=== PATIENT | male | born 1940 | race Caucasian/White ===

== ENCOUNTER 2019-11-21 | Emergency (ER) | payer MEDICARE, BC ==
[~2019-11-21] MED LIST: ALBUTEROL SUL0.083 % IN; ATORVASTATIN CA10 MG PO; BAYER LOW DOSE81 MG; COMBIVENT IN; DOXYCYCL HYC100 MG PO; DULCOLAX5 MG PO; FISH OIL1000 MG PO; LISINOP/HCTZ1 TAB OR; METFORMIN500 MG OR; PRAVASTATIN20 MG PO; PREDNISONE20 MG PO; VIAGRA100 MG OR; ZESTRIL5 M1 PO; [UNRECOGNIZED DRUG - OTHER] OR
[2019-11-21] MEDS ORDERED: ADULT ASPIRIN R81 MG PO (09:53)
[2019-11-21] MEDS ORDERED: ATORVASTATIN CA20 MG PO (09:55)
[2019-11-21] MEDS ORDERED: FISH OIL1000 MG PO (09:56)
[2019-11-21] MEDS ORDERED: NEXIUM40 M1 PO (09:56)
[2019-11-21] MEDS ORDERED: FLONASE AL50 MCG/ACT NAB (09:57)
[2019-11-21] MEDS ORDERED: METFORMIN500 MG PO (09:58)
[2019-11-21] MEDS ORDERED: PRINIVIL5 MG PO (09:58)
[2019-11-21] MEDS ORDERED: NAPROXEN250 MG PO (09:59)
[2019-11-21] MEDS ORDERED: SILDENAFIL100 MG PO (10:00)
[2019-11-21] MEDS ORDERED: NORVASC2.5 M1 PO (10:01)
[2019-11-21] MEDS ORDERED: CLINDAMYCIN HC150 MG PO (10:04)
[2019-11-21 10:07] LABS: HEMATOCRIT 40.7 % (39.0-50.0); HEMOGLOBIN 13.4 g/dl (14.0-18.0); IMMATURE GRANULOCYTES 0.3 % (0.0-5.0); MEAN CELL VOLUME 95.5 fL CALC (80.0-100.0); MEAN CORPUSCULAR HGB 31.5 pG CALC (26.0-32.0); MEAN CORPUSCULAR HGB CONC 32.9 g/L CALC (32.0-36.0); NEUT# 3.53 thou/uL (1.82-7.42); RED BLOOD COUNT 4.26 mill/uL (4.70-6.10); RED CELL DISTRI WIDTH 13.5 % (11.5-15.5)
[2019-11-21 10:12] LABS: URINE BILIRUBIN - DIPSTICK NEGATIVE (NEGATIVE); URINE BLOOD DIPSTICK NEGATIVE (NEGATIVE); URINE COLOR YELLOW; URINE GLUCOSE - DIPSTICK NEGATIVE (NEGATIVE); URINE KETONE NEGATIVE (NEGATIVE); URINE LEUK ESTERASE NEGATIVE (NEGATIVE); URINE NITRITE - DIPSTICK NEGATIVE (Negative); URINE PROTEIN - DIPSTICK NEGATIVE (NEG-TRACE); URINE SPECIFIC GRAVITY 1.015
[2019-11-21 10:35] LABS: ALBUMIN 4.3 g/dL (3.2-5.0); ALKALINE PHOSPHATASE 79 u/l (38-126); ANION GAP 11 (6-22 (CALC)); BILIRUBIN, TOTAL 0.7 mg/dL (0.0-1.4); BUN 18 mg/dL (8-23); BUN/CREATININE RATIO 27 (12-20 (CALC)); CARBON DIOXIDE 30 mmol/l (22-30); CHLORIDE 101 mmol/l (95-108); CREATININE 0.7 mg/dL (0.7-1.3); GFR > 60 ML/MIN (>=60 (CALC)); GFR FOR AFR.AMER. > 60 ML/MIN (>=60 (CALC)); POTASSIUM 4.7 mmol/l (3.5-5.1); SGOT/AST 24 u/l (19-48); SODIUM 137 mmol/l (137-146); TOTAL PROTEIN 7.3 g/dL (6.3-8.2)
== END 2019-11-21 11:27 | disposition home or self-care (01) ==
DX: K59.00 Constipation, unspecified (principal); N20.0 Calculus of kidney; I10 Essential (primary) hypertension; E11.9 Type 2 diabetes mellitus without complications; J44.9 Chronic obstructive pulmonary disease, unspecified; Z79.84 Long term (current) use of oral hypoglycemic drugs; Z87.442 Personal history of urinary calculi